=== PATIENT | male | born 1990 | race Caucasian/White ===

== ENCOUNTER 2021-08-02 13:58 | Emergency (ER) | payer OTHER ==
[2021-08-02] MEDS ORDERED: DIPHTH,PERTUSS(ACELL),TET 0.5 ML DISP.SYRIN IM ONE ×2 (14:18→14:57)
[2021-08-02 14:26] VITALS: BP 127/81; PULSE 79; TEMP 99; BMI 31.5
== END 2021-08-02 15:41 | disposition home or self-care (01) ==
LOC: FER 13:58
PROC: 3E0234Z Introduction of Serum, Toxoid and Vaccine into Muscle, Percutaneous Approach (ICD-10-PCS; principal; 2021-08-02)
DX: S61.412A Laceration without foreign body of left hand, initial encounter (principal); W25.XXXA Contact with sharp glass, initial encounter; W22.8XXA Striking against or struck by other objects, initial encounter
CPT/HCPCS: 73130-TC-LT-FY; 90715; 99284-25